=== PATIENT | female | born 2005 | race Caucasian/White ===

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

== ENCOUNTER 2025-02-20 01:57 | Emergency (ER) | payer OTHER, SELFPAY ==
--- OUTSIDE RECORDS SUMMARY | 2025-02-04 10:15 | XMS_ITS ---
Author Organization [facility] vices Address [address] [place] [id number] Care Team Providers Care Pattern Generator Operator Name Role Phone Iliana Bonilla Unavailable [phone] REASON FOR VISIT Periodic Exam Social History Sex Assigned At : Social History Observation Description Sex Assigned At Female Encounters Encounter Location Date Provider Diagnosis [facility] [address] [place], [place] [id number] 02/04/2025 Iliana Bonilla Plan Of Treatment No Information Progress Notes * Otilia SAGASTUME ADOB:[birth year] (19 yo F)Acc No.[id number]:02/04/2025 Patient: Otilia LAZAR Provider: Lena Bonilla DDS :2005 A ge:19 Y S ex:Female Date:02/04/2025 Address:[address] [place], [place] [id number] Subjective: * Chief Complaints: * 1 . Periodic Exam. * Medical History: Objective: * Vitals: Assessment: Plan: * Treatment: * Billing Information: * Visit Code: * Procedure Codes: * Electronic signature of Juana Bonilla DDS on 02/20/2025 at 02:12 AM EDT Sign off status: Pending * Provider: Lena Bonilla DDS Date: 02/04/2025 Generated for Sukhwinder santamaria/Wild/eTransmitting on: 02/20/2025 02:12 AM EDT
[2025-02-20 02:10] VITALS: BP 107/57; PULSE 70; TEMP 37.2; O2SAT 99; BMI 26.6
--- OUTSIDE RECORDS SUMMARY | 2025-02-20 02:13 | XMS_ITS | Patient Health Record ---
Author Organization [facility] vices Address [address] [place], [place] [id number] Care Team Providers Care Party Plan Selling Distributor Name Role Phone Iliana Bonilla Unavailable [phone] Allergies Allergen (clinical drug ingredient) Drug/Non Drug Allergy documented on EMR Reaction Allergy Type Onset Date Status Penicillin Unknown Drug Allergy Active Substance with sulfonamide structure and antibacterial mechanism of action (substance) Sulfa Antibiotics Unknown Drug Allergy Active Reason For Referral No Information Medications Medication SIG (Take, Route, Frequency, Duration) Notes Start Date End Date Status Nortrel 0.5/0.75/1-35 MG-MCG Oral; Duration: 28 Days Active Social History Sex Assigned At : Social History Observation Description Sex Assigned At Female Plan Of Treatment No Information Insurance Providers Payer Name Payer Address Payer Phone Subscriber Number Group Number Insured Name Patient Relationship to Insured Coverage Start Date Coverage End Date [employer] [place] [address] [address] [place] [address] [id number] Sagastume Otilia Self - patient is the insured 3 D[employer]icaid [facility] after [place] [employer] [address] [place], [place] [phone] [id number] Harvey Sagastumeayla Self - patient is the insured 3
--- OUTSIDE RECORDS SUMMARY | 2025-02-20 02:13 | XMS_ITS | Patient Health Record ---
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 Name Role Phone Donovan Juares Primary Care Provider Reyna Franklin [phone] Allergies Allergen (clinical drug ingredient) Drug/Non Drug Allergy documented on EMR Reaction Allergy Type Onset Date Status Substance with sulfonamide structure and antibacterial mechanism of action (substance) Sulfa Antibiotics hives Drug Allergy Active Penicillin rash Drug Allergy Active Results Component Value Reference Range Notes XR knee LT 4V Reviewed date:12/07/2024 06:10:36 PM Interpretation: Performing Lab: Notes/Report: Source Facility: [place] [id number] XRay Report Signed Patient: OTILIA SAGASTUME MR#: [id number] : 2005 Acct:[id number] Age/Sex: 19 / F ADM Date: 12/07/24 Loc: ER Attending Dr: Ordering Physician: Stephanie Gandhi M.D. Date of Service: 12/07/24 Procedure(s): XR knee LT 4V Accession Number(s): [id number] cc: Carlin Juares M.D.; Stephanie Gandhi M.D. [place] [address] Patient Name: OTILIA SAGASTUME MRN: [facility]:[id number] date: 2005 Sex: F Assigned Patient Location: ER Current Patient Location: ER Accession/Order Number: [id number] Exam Date: 12/07/2024 14:46 Report Date: 12/07/2024 14:47 At the request of: STEPHANIE GANDHI MD Procedure: XR knee LT 4V 4 views left knee plain film COMPARISON: None HISTORY: Acute left knee pain. Left knee injury. ACUTE FINDINGS: No acute findings DEGENERATIVE CHANGE: Unremarkable SOFT TISSUE FINDINGS: Unremarkable JOINT EFFUSION: None POSTOP CHANGES: None BONE MINERALIZATION: Adequate XR/XR knee LT 4V IMPRESSION: No acute findings Impression dictated by: Gregg Denis M.D. 12/07/2024 2:47 PM Dictation Location: [place] [address] Electronically authenticated by: [id number] Y Date: 12/07/2024 14:47 Dictated By: Gregg Denis D.O. Signed By: 12/07/24 1449 DD/ 144 TD/TT: Program Strategist: HCG Qualitative* Reviewed date:03/14/2024 11:35:29 AM Interpretation: Performing Lab: Notes/Report: [facility] , HCG Qualitative NEGATIVE NEGATIVE Performing Lab: see note ML - [facility] LB PROF CHEM 8 (BAS METB) Reviewed date:03/14/2024 11:35:28 AM Interpretation: Performing Lab: Notes/Report: [facility] , Sodium 141 136-145 mmol/L Potassium 3.7 3.5-5.1 mmol/L Chloride 103 98-107 mmol/L Carbon Dioxide 28.0 21.0-32.0 mmol/L Anion Gap 13.7 Glucose 121 74-106 mg/dL Blood Urea Nitrogen 17.0 6.4-19.3 mg/dL Creatinine 0.82 0.55-1.02 mg/dL Estimated GFR ( Sherice >60 >=60 mL/mi n/1.73m 2 Estimated GFR (Non- Raquel >60 >=60 mL/mi n/1.73m 2 BUN Creatinine Ratio 20.7 Calcium 9.6 8.5-10.1 mg/dL Performing Lab: see note ML - [facility] LB Reason For Referral No Information Medications Medication SIG (Take, Route, Frequency, Duration) Notes Start Date End Date Status Azithromycin 250 MG as directed Orally daily; Duration: 5 days take 2 tablets po on first day than one tablet po days 2-5 10/16/2024 Active Nortrel /11/30 0.5/0.75/1-35 MG-MCG TAKE 1 TABLET BY MOUTH EVERY DAY; Duration: 28 days Active Cyproheptadine HCl 4 MG TAKE 1 TABLET BY MOUTH TWICE A DAY; Duration: 30 Active Ketorolac Tromethamine 10 MG 1 tablet at onset f migraine Orally daily porn; Duration: 20 days 03/18/2024 Active Immunizations Vaccine Route Administration Date Status Comme nts DTaP Unknown 03/28/2006 Administered DTaP Unknown 03/04/2007 Administered DTaP/HepB/IPV (Pediarix) Unknown 01/21/2006 Administere d DTaP/HepB/IPV (Pediarix) Unknown 05/23/2006 Administere d Flu, Fluzone (66076) 6-35 mo , single-dose syringe () Unknown 07/24/2016 Administered Hep A, Ped/Adol, 2 Dose Unknown 12/18/2013 Administered Hep A, Ped/Adol, 2 Dose Unknown 07/24/2016 Administered Hep B, Ped/Adol, 3 Dose Unknown 2005 Administered HIB, unspecified formulation Unknown 01/21/2006 Adminis tered HIB, unspecified formulation Unknown 03/28/2006 Adminis tered HIB, unspecified formulation Unknown 05/23/2006 Adminis tered HIB, unspecified formulation Unknown 03/04/2007 Adminis tered Meningococcal (Menevo) Unknown 09/18/2018 Administered MMR Unknown 03/04/2007 Administered MMR/Varicella (ProQuad) Unknown 12/18/2013 Administered Pneumococcal (Prevnar 7) - historic Unknown 01/21/2006 Administered Pneumococcal (Prevnar 7) - historic Unknown 03/28/2006 Administered Pneumococcal (Prevnar 7) - historic Unknown 05/23/2006 Administered Pneumococcal (Prevnar 7) - historic Unknown 03/04/2007 Administered Polio Virus, IPV Unknown 03/28/2006 Administered Polio Virus, IPV Unknown 12/18/2013 Administered Tdap (Adacel) Unknown 12/18/2013 Administered Tdap (Adacel) Unknown 09/18/2018 Administered Varicella Unknown 03/04/2007 Administered Social History Tobacco Use: Social History Observation Description Date Details (start date - stop date) Never Smoker NA - NA Tobacco Use/Smoking Question Answer Notes Patient is a nonsmoker Alcohol Screen (Audit-C) Question Answer Notes Did you have a drink containing alcohol in the p ast year? No Points 0 Interpretation Negative AUDIT-C (Standard) Question Answer Notes Did you have a drink containing alcohol in the p ast year? No Points 0 Interpretation Negative Problems Problem Type SNOMED Code ICD Code Onset Dates Problem Status W/U Status Risk Notes Problem Migraine (72183530) Migraine (G43.909) Active confirmed Problem Alopecia (37560875) Hair loss (L65.9) Active confirmed Vital Signs Temperature 99.0 degrees Fahrenheit 10/16/2024 Blood pressure diastolic 68 mm Hg 10/16/2024 BMI Percentile 89.63 % 10/16/2024 Height 63.75 in 10/16/2024 Blood pressure systolic 102 mm Hg 10/16/2024 Weight 159 lbs 10/16/2024 BMI 27.5 kg/m2 10/16/2024 Encounters Encounter Location Date Provider Diagnosis [place] [address] [place] [address] 03/14/2024 Donovan [facility] [address] [place] [address] 03/18/2024 Donovan Juares Migraine G43.[address] [address] 10/16/2024 Reyna Noemi Pharyngitis J02.9 Assessments Encounter Date Diagnosis (ICD Code) Assessment Notes Treatment Notes Treatment Clinical Notes Section Notes 03/18/2024 Migraine (ICD-10 - G43.909) 10/16/2024 Pharyngitis (ICD-10 - J02.9) defers testing warm salt water gargles Plan Of Treatment Pending Test Test Name Order Date CMP (COMPLETE METABOLIC PANEL) HEMOGLOBIN A1C (GLYCO) 04/08/2023 IRON, TOTAL 04/08/2023 LIPID PANEL (CHOL/TRIG/HDL/LDL) 04/08/20 CBC WITH DIFF 04/08/2023 VITAMIN D, 25 LEVEL (TOTAL) 04/08/2023 Insulin Level 04/08/2023 THYROID PROFILE WITH TSH 04/15/2023 VIT B12 AND FOLATE 04/08/2023 MRI BRAIN WO CON 03/18/2024 THYROID PANEL (T4/TSH/FREE T3) 3 Insurance Providers Payer Name Payer Address Payer Phone Subscriber Number Group Number Insured Name Patient Relationship to Insured Coverage Start Date Coverage End Date [employer] [place] [employer] [address] [place] [address] [id number] Otilia Sagastume Self - patient is the insured 3
--- NOTE | 2025-02-20 02:40 | ED_ITS ---
HPI - Dental/Oral General Chief complaint: Dental/Oral Stated complaint: TOOTHACHE Time Seen by Provider: 02/20/25 02:30 Source: patient Mode of arrival: walk-in History of Present Illness HPI Narrative: presents with increasing dental pain over past couple of days. No facial swelling or fever. No problem swallowing Related Data Home Medications ?Medication ?Instructions ?Recorded ?Confirmed norethindrone-e.estradiol 1 tab PO DAILY 03/29/23 1108/16 triphasic 0.5 mg/0.75 mg/1 mg-35 mcg tablet (Nortrel (28)) Previous Rx's ?Medication ?Instructions ?Recorded ketorolac 0.5 % eye drops (Acular) 1 drp ophthalmic (e ye) QID 72 03/29/23 hours #5 mL ctwjxzhogo-aslkvxgllfxyb-fbuxpeyb 1 cap PO Q6H PRN shubham n 5 days #20 03/13/24 50 mg-300 mg-40 mg capsule caps (Fioricet) Allergies Allergy/AdvReac Type Severity Reaction Status Date / Time Penicillins Allergy Unknown Rash Verified 02/20/25 02:10 Sulfa (Sulfonamide Allergy Unknown shortness Verified 02/20/25 02:10 Antibiotics) of breath Review of Systems 2 ROS0 Status of ROS 10 or more systems reviewed and unremark able except as noted in history and below PFSH PFSH Social History Smoking status: Never smoker Little interest or pleasure in doing things: not at all Feeling down, depressed, or hopeless: not at all Exam Constitutional Vital Signs, click to edit/add: Last Vital Signs Temp 99.0 F 02/20/25 02:10 Pulse 70 02/20/25 02:10 Resp 20 02/20/25 02:10 BP 107/57 02/20/25 02:10 Pulse Ox 99 02/20/25 02:10 O2 Del Method Room Air 02/20/25 02:10 Common normals: no apparent distress, average body habitus, oriented x3, no limitations, healthy appearing, alert and well nourished [facility] Common normals: normocephalic and head/scalp atraumatic Teeth and gingiva image: 2 1. tender Eye Common normals: EOMs intact bilaterally and conjunctivae normal Respiratory Common normals: normal respiratory effort, no retractions, no use of accessory muscles and clear to auscultation bilaterally Cardio Common normals: regular rate, regular rhythm, S1 normal heart sound and S2 normal heart sound Extremity Common normals: normal to inspection and full ROM Neuro Common normals: oriented x3, CN's II-XII intact bilaterally, moves all extremities and no focal motor deficits Psych Appearance: grossly normal Course Vital Signs Vital signs: Vital Signs Temperature 99.0 F 02/20/25 02:10 Pulse Rate 70 02/20/25 02:10 Respiratory Rate 02/20/25 02:10 Blood Pressure 107/57 02/20/25 02:10 Pulse Oximetry 99 02/20/25 02:10 Oxygen Delivery Method Room Air 02/20/25 02:10 Temperature 99.0 F 02/20/25 02:10 Pulse Rate 70 02/20/25 02:10 Respiratory Rate 02/20/25 02:10 Blood Pressure 107/57 02/20/25 02:10 Pulse Oximetry 99 02/20/25 02:10 Oxygen Delivery Method Room Air 02/20/25 02:10 MDM - Dental/Oral MDM Narrative Medical decision making narrative: presents with increasing dental pain left anterior lower molar. mild associated gingival swelling. tender. neg facial swelling. oral pharynx clear patient advised of the plan to treat with course of clindamycin and have her follow up with the family dentist Discharge Plan Discharge Chief Complaint: Dental/Oral Clinical Impression: Dental abscess Patient Disposition: Home, Self-Care Prescriptions / Home Meds: No Action Nortrel (28) 0.5/0.75/1 mg- 35 mcg tablet 1 tab PO DAILY ketorolac [Acular] 0.5 % drops 1 drp ophthalmic (eye) QID 3 Days Qty: 5 0RF fgqmdifxlk-digolkdhtzdrd-vlbp [Fioricet] 50-300-40 mg capsule 1 cap PO Q6H PRN (Reason: pain) 5 Days Qty: 20 0RF Print Language: Amharic Instructions: Dental Abscess (ED) Additional Instructions: follow up with your dentist next week Referrals: Carlin Juares MD [Primary Care Provider, Family Practice] - 1 week
[2025-02-20] MEDS: CLINDAMYCIN HCL 150 MG CAPSULE 300 MG PO (02:47)
[2025-02-20] MEDS: PREDNISONE 20 MG TABLET 40 MG PO (02:47)
== END 2025-02-20 02:55 | disposition home or self-care (01) ==
PROVIDERS: Emergency Provider Internal Medicine; PCP Family Medicine
DX: K04.7 Periapical abscess without sinus (principal)
CPT/HCPCS: 99283; J7512